=== PATIENT | female | born 1995 | race Caucasian/White ===

== ENCOUNTER 2022-11-25 14:22 | Emergency (ER) | payer OTHER, SELFPAY ==
[2022-11-25 14:28] VITALS: BP 116/59; PULSE 107; RESP 20; TEMP 36.9; O2SAT 100
--- NOTE | 2022-11-25 14:28 | ED.URI ---
HPI - URI/Sore Throat General Chief Complaint: Upper Respiratory Infection Stated Complaint: sore throat/ear pain Time Seen by Provider: 11/25/22 14:28 Source: patient and RN notes reviewed History of Present Illness HPI Narrative: Patient is a 27-year-old female who presents to urgent care with complaints of sore throat and right ear discomfort. Patient states it started Tuesday and she has had exposure to strep. Patient is 18 weeks . Denies any fever, nausea or vomiting. Patient has been taking Tylenol. No other acute complaints. No acute distress noted. Patient aware of the plan of care. Some parts of this dictation were generated by voice recognition software and may contain typographical and/or grammatical inaccuracies. Related Data Home Medications Medication Instructions Recorded Confirmed vitamin-ferrous fumarate 1 tablet PO DAILY 11/25/22 11/25/22 28 mg iron-folic acid 800 mcg tablet ( Tablet) Allergies Allergy/AdvReac Type Severity Reaction Status Date / Time No Known Allergies Allergy Verified 11/25/22 14:37 Review of Systems Review of Systems: CONSTITUTIONAL: Denies fever, chills, or sweats. EYES: Denies visual changes, redness, or discharge. ENT: Denies rhinorrhea, congestion. Reports of sore throat and right otalgia CARDIOVASCULAR: Denies chest pain, palpitations, or edema. RESPIRATORY: Denies cough or dyspnea. GASTROINTESTINAL: Denies abdominal pain, nausea, vomiting, or diarrhea. GENITOURINARY: Denies dysuria or hematuria. SKIN: Denies rash or itching. MUSCULOSKELETAL: Denies back pain, joint pain, or myalgia. NEUROLOGIC: Denies headache, numbness, or weakness. All other systems reviewed are negative, except as documented in HPI. PMFSH Comments At the time of my signature, I reviewed and agree with the nursing past medical, surgical, social, and family history. There is no relevant family history pertinent to the patient complaint. Exam Narrative: GENERAL: This is a well-nourished, well-developed patient, in no apparent distress. HEAD: normocephalic, atraumatic. EYES: PERRL. Sclera clear/white. Vision is grossly intact. EARS: External ears normal, auditory canals clear and without drainage, TMs normal without perforation. Hearing grossly intact. NOSE: External nose normal with no obvious nasal discharge, nares without redness, no rhinorrhea. THROAT: Mucous membranes moist, posterior pharynx clear. Mild postnasal drainage NECK: Neck supple, non-tender without lymphadenopathy, masses or thyromegaly. CARDIOVASCULAR: Regular rate and rhythm without murmurs, gallops, or rubs. RESPIRATORY: Clear to auscultation. Breath sounds equal bilaterally. No wheezes, rales, or rhonchi. SKIN: warm, intact with no suspicious lesions or rash, good texture and turgor. NEURO: awake, alert, and oriented to person, place and time. There were no obvious focal neurologic abnormalities. EXTREMITIES: No clubbing, cyanosis, or edema. Course Course Level of Care: Express Care Visit Vital Signs Vital signs: Vital Signs Temperature 98.5 F 11/25/22 14:28 Pulse Rate 107 H 11/25/22 14:28 Respiratory Rate 20 11/25/22 14:28 Blood Pressure 116/59 L 11/25/22 14:28 Pulse Oximetry 100 11/25/22 14:28 Oxygen Delivery Room Air 11/25/22 14:28 Temperature 98.5 F 11/25/22 14:28 Pulse Rate 107 H 11/25/22 14:28 Respiratory Rate 20 11/25/22 14:28 Blood Pressure 116/59 L 11/25/22 14:28 Pulse Oximetry 100 11/25/22 14:28 Oxygen Delivery Room Air 11/25/22 14:28 Reviewed MDM - URI/Sore Throat MDM Narrative Medical decision making narrative: Reviewed lab results with the patient. She is aware that strep swab was negative. Educated patient on culture we will call within 72 hours if culture is positive antibiotics are necessary. Advised patient take a daily antihistamine safe in she has Claritin/Zyrtec/Benadryl. May continue Tylenol as needed. Joseph
== END 2022-11-25 14:59 | disposition home or self-care (01) ==
PROVIDERS: Emergency Provider Nurse Practitioner Family; PCP Emergency Medicine
DX: O99.512 Diseases of the respiratory system complicating pregnancy, second trimester (principal); Z3A.18 18 weeks gestation of pregnancy; J02.9 Acute pharyngitis, unspecified
CPT/HCPCS: 87081; 87880; 99213; G0463